=== PATIENT | male | born 1955 | race African-American/Black ===

== ENCOUNTER 2016-10-22 10:07 | Emergency (ER) | payer MEDICAID ==
[~2016-10-22] VITALS: Ht 177.8 cm; Wt 88.5 kg
[~2016-10-22 10:07] MED LIST: ACCUPRIL10 MG PO; ACYCLOVIR800 MG ORAL; ALBUTEROL SULF8.5 GM INH; AMLODIPINE BESY10 MG ORAL; ASMANEX; AZITHROMYCIN250 MG ORAL; BENADRYL50 MG ORAL; CALCITRIOL0.25 MCG PO; COLACE100 MG ORAL; COUMADIN5 MG ORAL; COZAAR50 MG ORAL; DULERA 100 MCG/13 GM INH; FORADIL INH; FORADIL12 MCG IH; GABAPENTIN100 MG ORAL; HYDROCHLOROTH12.5 M1 PO; HYDROCHLOROTH12.5 M2 ORAL; HYDROCHLOROTHIA50 MG ORAL; HYDROCORTISO1 APPLIC TOPIC; IBUPROFEN600 MG ORAL; INDOMETHACIN50 MG PO; INDOMETHACIN75 MG ORAL; LISINOPRIL2.5 MG ORAL; LISINOPRIL20 MG ORAL; METOPROLOL TART25 MG ORAL; MITIGARE0.6 MG PO; NORCO 5-325 TA1 EACH ORAL; OCUFLOX5 ML OP; PREDNISONE20 MG ORAL; ROBAXIN-750750 MG PO; SINGULAIR10 MG ORAL; VICODIN1 TAB PO; VIROPTIC LEFT EYE; ZANTAC150 MG ORAL; [UNRECOGNIZED DRUG - OTHER]; [UNRECOGNIZED DRUG - OTHER]
[2016-10-22] MEDS ORDERED: PREDNISONE20 MG ORAL (10:27)
[2016-10-22] MEDS ORDERED: PredniSONE 20mg tab ORAL ONE (10:30)
[2016-10-22] MEDS: Albuterol ud Inhalation HHN SCH ×3 (10:40→10:57)
[2016-10-22] MEDS: Ipratropium 0.02% Inh Soln 2.5ml UD HHN SCH ×3 (10:41→10:56)
[2016-10-22 11:17] VITALS: BP 159/84
[2016-10-22 11:31] VITALS: BP 159/84
--- NOTE | 2016-10-22 15:53 | Diagnostic Imaging Report ---
Indication: SOB Technique: One view of the chest Comparison: 06/27/2016 Findings: Lungs and pleural spaces are clear. Heart size is normal. No significant change Impression: No acute process
--- NOTE | 2016-10-24 14:35 | Emergency Room Report ---
History of Present Illness General Chief Complaint: Dyspnea/Respdistress Source: Patient Present Illness HPI [id number] with 5 days green-sputum productive cough. Associated with chest tightness. Denies fever/chills, SOB, sick contacts. History of asthma. Non- smoker. Minimal improvement with home nebs. Allergies: Coded Allergies: SHELLFISH (Verified Allergy, Unknown, 04/17/15) Patient History Past Medical History: asthma Past Surgical History: none Pertinent Family History: none Social History: Denies: alcohol use, drug use, smoking Immunizations: UTD Reviewed Nursing Documentation: PMH: Agreed, PSxH: Agreed Nursing Documentation-PMH Past Medical History: No History, Except For Hx Hypertension: Yes Hx Pacemaker: No Hx Asthma: Yes Hx COPD: No Hx Diabetes: No Hx Cancer: No Hx Gastrointestinal Problems: No Hx Dialysis: No Hx Cerebrovascular Accident: No Hx Seizures: No Review of Systems All Other Systems: negative except mentioned in HPI Physical Exam Vital Signs Date Time Temp Pulse Resp B/P Pulse Ox O2 Delivery O2 Flow Rate FiO2 10/22/16 10:19 97.7 83 20 176/94 100 Room Air 10/22/16 10:34 21 Sp02 EP Interpretation: reviewed, normal General Appearance: normal inspection, well appearing, no apparent distress, alert, GCS 15, non-toxic Head: normocephalic, atraumatic Eyes: bilateral eye EOMI, bilateral eye PERRL ENT: normal ENT inspection, hearing grossly normal, normal voice Neck: normal inspection, full range of motion, supple, no bony tend Respiratory: normal inspection, chest non-tender, lungs clear, normal breath sounds, no rhonchi, no respiratory distress, no retraction, no accessory muscle use, speaking full sentences, wheezing Cardiovascular #1: regular rate, rhythm, no edema Gastrointestinal: normal inspection, normal bowel sounds, non tender, soft, no guarding, no hernia Genitourinary: no CVA tenderness Musculoskeletal: normal inspection, back normal, normal range of motion, Mike' s Sign negative Neurologic: normal inspection, alert, oriented x3, responsive, sofa cover inspector III-XII nml as tested, motor strength/tone normal, speech normal Psychiatric: normal inspection, judgement/insight normal, mood/affect normal Skin: normal inspection, normal color, no rash Lymphatic: normal inspection Medical Decision Making Diagnostic Impression: Primary Impression: Asthma attack ER Course Mild asthma exacerbation. VS stable - no hypoxia, tachypnea. Mild end exp wheezing on exam Improved with nebs, steroids CXR does not show PNA Patient has enough nebs at home Rx prednisone PMD followup as needed Chest X-Ray Diagnostic Results EP Interpretation: Yes Findings: no consolidation Number of Views: 1 Last Vital Signs Date Time Temp Pulse Resp B/P Pulse Ox O2 Delivery O2 Flow Rate FiO2 10/22/16 11:31 97.7 87 10 159/84 100 Room Air 21 Status: improved Disposition: HOME, SELF-CARE Condition: Stable Scripts Prednisone* (PREDNISONE*) 20 Mg Tablet 40 MG ORAL DAILY for 4 Days, #4 TAB Prov: ELIZABETH JOHNSON M.D. 10/22/16 Referrals: NON PHYSICIAN (PCP) Patient Instructions: Asthma, Adult, [id number] Additional Instructions: - Take prednisone once daily each morning for next 4 days - Continue Dulera as prescribed every day - Use proventil as needed for cough - Return to ER if continued shortness of breath, chest tightness or other concerns ELIZABETH JOHNSON M.D. Oct 24, 2016 14:35
== END 2016-10-22 11:32 | disposition home or self-care (01) ==
LOC: EMR 11:05
DX: J45.901 Unspecified asthma with (acute) exacerbation (principal); I10 Essential (primary) hypertension; Z91.013 Allergy to seafood
CPT/HCPCS: 71010; 94640; 94664; 99283

== ENCOUNTER 2017-01-11 22:11 | Emergency (ER) | payer MEDICAID ==
[~2017-01-11] VITALS: Ht 177.8 cm; Wt 89.8 kg
[2017-01-11] MEDS ORDERED: Morphine Sulfate 4mg/ml Inj IVP ONE (23:00)
[2017-01-12 00:39] LABS: BASOPHILS % (AUTO) 0.8 % (0.0-2.0); EOSINOPHILS % (AUTO) 0.6 % (0.0-3.0); LYMPHOCYTES % (AUTO) 28.7 % (20.0-45.0); MEAN CORPUSCULAR HEMOGLOBIN 32.1 PG (27.0-31.0); MEAN CORPUSCULAR HGB CONC 33.3 G/DL (32.0-36.0); MEAN CORPUSCULAR VOLUME 96 FL (80-99); MEAN PLATELET VOLUME 10.6 FL (6.5-10.1); MONOCYTES % (AUTO) 7.4 % (1.0-10.0); NEUTROPHILS % (AUTO) 62.5 % (45.0-75.0); PLATELET COUNT 173 K/UL (150-450); RED BLOOD COUNT 4.46 M/UL (4.70-6.10); RED CELL DISTRIBUTION WIDTH 11.7 % (11.6-14.8); WHITE BLOOD COUNT 6.8 K/UL (4.8-10.8)
[2017-01-12 00:56] LABS: ALANINE AMINOTRANSFERASE 22 U/L (3-41); ALBUMIN/GLOBULIN RATIO 1.6 (1.0-2.7); ANION GAP 14 (5-15); ASPARTATE AMINO TRANSFERASE 21 U/L (5-40); CALCIUM 9.8 mg/dL (8.6-10.2); CARBON DIOXIDE 29 mEQ/L (20-30); CHLORIDE 96 mEQ/L (98-107); CREATININE 0.9 mg/dL (0.7-1.2); GLOMERULAR FILTRATION RATE > 60 mL/min (>60); HEMOLYSIS 8; POTASSIUM 3.7 mEQ/L (3.4-4.9); SODIUM 139 mEQ/L (135-145); TOTAL PROTEIN 7.6 g/dL (6.6-8.7)
[2017-01-12 00:58] LABS: TROPONIN I < 0.30 ng/mL (<=0.30)
[2017-01-12 01:00] VITALS: BP 179/96
[2017-01-12 01:07] LABS: CKMB 5.6 ng/mL (< 6.7)
[2017-01-12] MEDS ORDERED: CYCLOBENZAPRINE10 MG ORAL (01:53)
[2017-01-12] MEDS ORDERED: IBUPROFEN600 MG ORAL (01:53)
[2017-01-12] MEDS ORDERED: Ketorolac 30mg Inj IV ONE (02:00)
[2017-01-12 02:20] VITALS: BP 177/95
[2017-01-12 02:26] VITALS: BP 177/95
--- NOTE | 2017-01-12 04:01 | Emergency Room Report ---
History of Present Illness General Chief Complaint: General Complaint Source: Patient Present Illness HPI 61-year-old male presents ED complaining of pain in his neck and arms. Started tonight. Feels cramping sensation in his arms bilaterally and in his neck. radiating to his fingertips. 8/10. Denies any weakness in his arms or legs. Denies any chest pain or shortness of breath. Denies drug use. States he has had muscle cramps similar in the past but never this intense. No other aggravating relieving factors. Denies any other associated symptoms Allergies: Coded Allergies: SHELLFISH (Verified Allergy, Unknown, 04/17/15) Patient History Past Medical History: HTN, asthma Past Surgical History: none Pertinent Family History: none Social History: Denies: alcohol use, drug use, smoking Immunizations: UTD Reviewed Nursing Documentation: PMH: Agreed, PSxH: Agreed Nursing Documentation-PMH Hx Hypertension: Yes Hx Pacemaker: No Hx Asthma: Yes Hx COPD: No Hx Diabetes: No Hx Cancer: No Hx Gastrointestinal Problems: No Hx Dialysis: No Hx Cerebrovascular Accident: No Hx Seizures: No Review of Systems All Other Systems: negative except mentioned in HPI Physical Exam Vital Signs Date Time Temp Pulse Resp B/P Pulse Ox O2 Delivery O2 Flow Rate FiO2 01/11/17 22:34 98.1 84 16 188/117 99 Room Air Sp02 EP Interpretation: reviewed, normal General Appearance: no apparent distress, alert, GCS 15, non-toxic Head: normocephalic, atraumatic Eyes: bilateral eye PERRL, bilateral eye normal inspection ENT: hearing grossly normal, normal pharynx, no angioedema, normal voice Neck: full range of motion, supple/symm/no masses, tender lateral Respiratory: chest non-tender, lungs clear, normal breath sounds, speaking full sentences Cardiovascular #1: regular rate, rhythm, no edema Cardiovascular #2: 2+ carotid (R), 2+ carotid (L), 2+ radial (R), 2+ radial (L) , 2+ dorsalis pedis (R), 2+ dorsalis pedis (L) Gastrointestinal: normal bowel sounds, non tender, soft, non-distended, no guarding, no rebound Rectal: deferred Genitourinary: normal inspection, no CVA tenderness Musculoskeletal: back normal, gait/station normal, normal range of motion, non- tender Neurologic: alert, oriented x3, responsive, motor strength/tone normal, sensory intact, speech normal Psychiatric: judgement/insight normal, memory normal, mood/affect normal, no suicidal/homicidal ideation Reflexes: 3+ bicep (R), 3+ bicep (L), 3+ tricep (R), 3+ tricep (L), 3+ knee (R) , 3+ knee (L) Skin: normal color, no rash, warm/dry, well hydrated Lymphatic: no adenopathy Medical Decision Making Diagnostic Impression: Primary Impression: Muscle spasm ER Course Hospital Course 61-year-old male presents ED with bilateral arm tingling and cramping sensation Differential diagnoses include: atypical chest pain, muscle cramps, rhabdo, radiculopathy Clinical course Patient placed on stretcher. After initial history and physical I ordered labs , EKG, chest x-ray. CT Head, CT Spine, pain meds labs reviewed- all electrolytes normal, troponins negative, no leukocytosis, hemoglobin/hematocrit stable. CK in 300s CT head, CT Cspine unremarkable Chest x-ray-no cardiomegaly, no rib fracture, no pneumothorax, no acute process EKG - NSR, no acute ischemic changes interpreted by me On reassessment pain is improved. Likely muscle cramps given patient's age and cardiac history I believe workup was warranted I. I feel this is a highly complex case requiring extensive working including EKG/Rhythm strip, Xray/CT/US, Blood/urine lab work, repeat exams while in ED, and administration of strong opiates/narcotics for pain control, admission to hospital or close patient follow up. Diagnosis - muscle spasm Stable and discharged to home with prescription for Motrin, Flexeril. Instructed to followup with PMD. Return to ED if symptoms recur or worsen Labs Test 01/12/17 00:05 White Blood Count 6.8 K/UL (4.8-10.8) Red Blood Count 4.46 M/UL (4.70-6.10) Hemoglobin 14.3 G/DL (14.2-18.0) Hematocrit 42.9 % (42.0-52.0) Mean Corpuscular Volume 96 FL (80-99) Mean Corpuscular Hemoglobin 32.1 PG (27.0-31.0) Mean Corpuscular Hemoglobin Concent 33.3 G/DL (32.0-36.0) Red Cell Distribution Width 11.7 % (11.6-14.8) Platelet Count 173 K/UL (150-450) Mean Platelet Volume 10.6 FL (6.5-10.1) Neutrophils (%) (Auto) 62.5 % (45.0-75.0) Lymphocytes (%) (Auto) 28.7 % (20.0-45.0) Monocytes (%) (Auto) 7.4 % (1.0-10.0) Eosinophils (%) (Auto) 0.6 % (0.0-3.0) Basophils (%) (Auto) 0.8 % (0.0-2.0) Sodium Level 139 mEQ/L (135-145) Potassium Level 3.7 mEQ/L (3.4-4.9) Chloride Level 96 mEQ/L (98-107) Carbon Dioxide Level 29 mEQ/L (20-30) Anion Gap 14 (5-15) Blood Urea Nitrogen 17 mg/dL (7-23) Creatinine 0.9 mg/dL (0.7-1.2) Estimat Glomerular Filtration Rate > 60 mL/min (>60) Glucose Level 132 mg/dL (74-106) Calcium Level 9.8 mg/dL (8.6-10.2) Total Bilirubin 0.4 mg/dL (0.0-1.2) Aspartate Amino Transf (AST/SGOT) 21 U/L (5-40) Alanine Aminotransferase (ALT/SGPT) 22 U/L (3-41) Alkaline Phosphatase 71 U/L (40-129) Total Creatine Kinase 391 U/L (38-174) Creatine Kinase MB 5.6 ng/mL (< 6.7) Creatine Kinase MB Relative Index 1.4 Troponin I < 0.30 ng/mL (<=0.30) Total Protein 7.6 g/dL (6.6-8.7) Albumin 4.7 g/dL (3.5-5.2) Globulin 2.9 g/dL Albumin/Globulin Ratio 1.6 (1.0-2.7) EKG Diagnostic Results Rate: normal Rhythm: NSR ST Segments: no acute changes ASA given to the pt in ED: No Rhythm Strip Diag. Results EP Interpretation: yes Rhythm: NSR, no PVC's, no ectopy Chest X-Ray Diagnostic Results Chest X-Ray Ordered: Yes # of Views/Limited/Complete: 1 View EP Interpretation: Yes Interpretation: no consolidation, no effusion, no pneumothorax, no acute cardiopulmonary disease Indication: Other - tingling/weakness in both arms Impression: No acute disease Interpreting ER Provider: Jefferson Greer MD CT/MRI/US Diagnostic Results CT/MRI/US Diagnostic Results : Imaging Test Ordered: CT Head, CT Cspine Impression CT head - no acute process CT Cspine - no acute process Last Vital Signs Date Time Temp Pulse Resp B/P Pulse Ox O2 Delivery O2 Flow Rate FiO2 01/12/17 02:26 96 18 177/95 100 Room Air 01/12/17 02:20 97.8 Status: improved Disposition: HOME, SELF-CARE Condition: Stable Scripts Cyclobenzaprine Hcl* (FLEXERIL*) 10 Mg Tablet 10 MG ORAL TID Y for Muscle Spasm, #20 TAB Prov: JEFFERSON GREER M.D. 01/12/17 Ibuprofen* (MOTRIN*) 600 Mg Tablet 600 MG ORAL Q8H Y for For Pain, #30 TAB 0 Refills Prov: JEFFERSON GREER M.D. 01/12/17 Patient Instructions: Muscle Cramps and Spasms, [id number] JEFFERSON GREER M.D. Jan 12, 2017 04:01
--- NOTE | 2017-01-12 06:49 | Diagnostic Imaging Report ---
Indications: Neck pain Technique: Continuous helical CT imaging of the cervical spine performed with automatic exposure was on a Siemens sensation [address] scanner. Axial, coronal and sagittal images reconstructed at 3 mm slice thicknesses. CTDI volume(s): 25 mGy Total DLP: 500 mGy-cm Findings: Comparison: None. Lordotic curvature is partially straightened.Vertebral alignment is intact. No fracture, facet subluxation or dislocation, prevertebral soft tissue swelling, or other acute changes are demonstrated. Multilevel disc space narrowing with marginal osteophyte formation. Multilevel facet hypertrophy. Multilevel spinal stenosis and neural foraminal narrowing results.. IMPRESSION: Straightening of cervical lordosis. This may be secondary to degenerative changes, positioning and/or muscular spasm. No other evidence of acute cervical abnormality Degenerative spondylosis. Neural impingement not excludable. Consider MRI for further evaluation as clinically indicated. This correlates with [employer] preliminary report The CT scanner at [facility] is accredited by the [employer] and the scans are performed using protocols designed to limit radiation exposure to as low as reasonably achievable to attain images of sufficient resolution adequate for diagnostic evaluation.
--- NOTE | 2017-01-12 06:50 | Diagnostic Imaging Report ---
Indications: Cephalgia Technique: Continuous helical CT imaging of the brain was performed with automatic exposure control on a Siemens sensation [address] scanner. Axial and coronal images were reconstructed at 5 mm slice thickness and interval. CTDI volume(s): 70 mGy Total DLP: 1442 mGy-cm Findings: Comparison: None. Intracranial anatomy is unremarkable. No evidence of mass or hemorrhage, other attenuation abnormality, mass effect, midline shift, hydrocephalus or increased intracranial pressure. Bone window images are unremarkable. Visualized paranasal sinuses and mastoid air cells are clear. IMPRESSION: Negative noncontrast CT scan of the brain . This correlates with [employer] preliminary report. The CT scanner at [facility] is accredited by the [employer] and the scans are performed using protocols designed to limit radiation exposure to as low as reasonably achievable to attain images of sufficient resolution adequate for diagnostic evaluation.
--- NOTE | 2017-01-14 08:52 | Diagnostic Imaging Report ---
Indication: Chest pain Technique: Single portable AP view of the chest. Findings: Comparison: 10/22/2016 The bones and extra pulmonary soft tissues, cardiomediastinal silhouette, pulmonary vasculature and parenchyma, and pleural surfaces remain unremarkable. IMPRESSION: Negative portable AP chest, unchanged.
--- NOTE | 2017-01-14 20:13 | Cardiology Report ---
APPROVED REPORT EKG Measurement Heart [id number] Normal sinus rhythm Abnormal ECG
== END 2017-01-12 02:20 | disposition home or self-care (01) ==
LOC: EMR 22:48
DX: M62.838 Other muscle spasm (principal); R20.2 Paresthesia of skin; I10 Essential (primary) hypertension; J45.909 Unspecified asthma, uncomplicated; Z91.013 Allergy to seafood
CPT/HCPCS: 36415; 70450; 71010; 72125; 80053; 82550; 82553; 84484; 85025; 93005; 96374; 96375; 99284; J1885; J2270; J7040

== ENCOUNTER 2017-04-22 07:08 | Emergency (ER) | payer MEDICAID ==
[~2017-04-22] VITALS: Ht 177.8 cm; Wt 90.7 kg
[~2017-04-22 07:08] MED LIST changes: +CYCLOBENZAPRINE10 MG ORAL
[2017-04-22 07:22] VITALS: BP 162/99
--- NOTE | 2017-04-22 07:25 | Emergency Room Report ---
History of Present Illness General Chief Complaint: Earache Source: Patient, Medical Record Present Illness HPI Patient presents with complaints of sore throat and ear pressure on the right- hand side. This is been going on for 2 weeks. Some worsening. In addition to that he has some mucoid discharge from his nose which is yellow. There's been no fevers and no wheezing. In addition to that no cough. Denies nausea vomiting or diarrhea. The pain is 10/10 according to him and pressure. It's intermittent worse when he is laying down. He's had intermittent headaches before and also has had problems with his sinuses in the past. The patient is a history of asthma and hypertension. He denies diabetes and states that his blood sugars have been normal. Denies dysuria or rashes. 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 Nursing Documentation: PMH: Agreed, PSxH: Agreed Nursing Documentation-PMH Past Medical History: No History, Except For Hx Hypertension: Yes Hx Pacemaker: No Hx Asthma: Yes Hx COPD: No Hx Diabetes: No Hx Cancer: No Hx Gastrointestinal Problems: No Hx Dialysis: No Hx Cerebrovascular Accident: No Hx Seizures: No Review of Systems All Other Systems: negative except mentioned in HPI Physical Exam Vital Signs Date Time Temp Pulse Resp B/P (MAP) Pulse Ox O2 Delivery O2 Flow Rate FiO2 04/22/17 07:12 98.1 76 14 172/78 98 Room Air Sp02 EP Interpretation: reviewed, normal General Appearance: well appearing, no apparent distress - not appear affected by reported pain Head: normocephalic, atraumatic Eyes: bilateral eye normal inspection, bilateral eye PERRL, bilateral eye other - arcus ENT: hearing grossly normal, normal voice, TMs + canals normal, pharyngeal erythema - R side Neck: full range of motion, supple Respiratory: lungs clear, normal breath sounds, no respiratory distress, speaking full sentences Cardiovascular #1: regular rate, rhythm Gastrointestinal: normal inspection, non tender, soft Musculoskeletal: no calf tenderness Neurologic: alert, copy center specialist III-XII nml as tested, motor strength/tone normal, sensory intact, cerebellar normal, normal gait, speech normal Psychiatric: mood/affect normal Skin: no rash Medical Decision Making Diagnostic Impression: Primary Impression: Viral syndrome Additional Impression: Sinusitis Qualified Codes: J01.01 - Acute recurrent maxillary sinusitis ER Course Patient presents with 2 weeks of upper respiratory type of symptoms. He denies any cough. He does have some mucoid discharge from his nose. Differential includes sinusitis, pharyngitis, otitis media. Based on his exam a strep infection is much less likely. At this point we will focus on symptomatic treatment. No antibiotics indicated. Patient sleeping here after meds. Patient stable for outpatient observation and treatment. Last Vital Signs Date Time Temp Pulse Resp B/P (MAP) Pulse Ox O2 Delivery O2 Flow Rate FiO2 04/22/17 08:43 98.1 66 19 144/83 100 Room Air Status: improved Disposition: HOME, SELF-CARE Condition: Improved Scripts Hydrocodone Bit/Acetaminophen 5-325* (NORCO 5-325*) 1 Each Tablet 1 TAB ORAL Q6H Y for For Pain, #10 TAB 0 Refills Prov: Herman Barros M.D. 04/22/17 Ibuprofen* (MOTRIN*) 600 Mg Tablet 600 MG ORAL Q6H Y for For Pain, #16 TAB Prov: Herman Barros M.D. 04/22/17 Chlorpheniramine Maleate (CHLORPHENIRAMINE MALEATE) 4 Mg Tablet 4 MG ORAL Q6HR Y for congestion, #12 TAB 0 Refills Prov: Herman Barros M.D. 04/22/17 Herman Barros M.D. Apr 22, 2017 07:25
[2017-04-22] MEDS ORDERED: NORCO 5-325 TA1 EACH ORAL (07:29)
[2017-04-22] MEDS ORDERED: CHLORPHENIRAMINE4 MG ORAL (07:29)
[2017-04-22] MEDS ORDERED: IBUPROFEN600 MG ORAL (07:29)
[2017-04-22 08:43] VITALS: BP 144/83
== END 2017-04-22 08:43 | disposition home or self-care (01) ==
LOC: EMR 07:36
DX: B34.9 Viral infection, unspecified (principal); J32.9 Chronic sinusitis, unspecified; I10 Essential (primary) hypertension; J45.909 Unspecified asthma, uncomplicated
CPT/HCPCS: 99284

== ENCOUNTER 2019-01-08 03:23 | Emergency (ER) | payer MEDICAID, MEDICARE, OTHER ==
[~2019-01-08] VITALS: Ht 177.8 cm; Wt 88.5 kg
[~2019-01-08 03:23] MED LIST changes: +ACCUPRIL20 MG PO; +ASMANEX0.135 G1 IH; +CHLORPHENIRAMINE4 MG ORAL; +PREDNISONE50 MG PO
--- NOTE | 2019-01-08 03:38 | NUR ---
ED Nurse Note: Patient presents with complaints of fever, post pneumonia vaccination. Patient has no other complaints.
[2019-01-08 03:44] VITALS: BP 156/78
--- NOTE | 2019-01-08 03:45 | NUR ---
ED Nurse Note: Patient has complaints of headache 10/10 on pain scale.
[2019-01-08] MEDS ORDERED: Acetaminophen 500mg (ES) tab ORAL ONE (04:00)
[2019-01-08] MEDS ORDERED: Ipratropium 0.02% Inh Soln 2.5ml UD HHN ONE (04:00)
[2019-01-08] MEDS ORDERED: Albuterol ud Inhalation HHN ONE (04:00)
[2019-01-08 04:18] VITALS: BP 155/88
[2019-01-08 04:29] LABS: HEMATOCRIT 42.9 % (42.0-52.0); HEMOGLOBIN 14.2 G/DL (14.2-18.0); MEAN CORPUSCULAR VOLUME 93 FL (80-99); PLATELET COUNT 197 K/UL (150-450); RED CELL DISTRIBUTION WIDTH 11.7 % (11.6-14.8); WHITE BLOOD COUNT 9.7 K/UL (4.8-10.8)
--- NOTE | 2019-01-08 04:34 | NUR ---
ED Nurse Note:Radiology at bedside.
[2019-01-08 04:42] LABS: ANION GAP 10 mmol/L (5-15); BLOOD UREA NITROGEN 24 mg/dL (7-18); CALCIUM 9.3 MG/DL (8.5-10.1); CARBON DIOXIDE 31 MMOL/L (21-32); CHLORIDE 100 MMOL/L (98-107); CREATININE 1.1 MG/DL (0.55-1.30); POTASSIUM 3.3 MMOL/L (3.5-5.1); SODIUM 140 MMOL/L (136-145)
[2019-01-08 04:46] LABS: ALANINE AMINOTRANSFERASE 35 U/L (12-78); ALBUMIN 4.4 G/DL (3.4-5.0); ALBUMIN/GLOBULIN RATIO 1.3 (1.0-2.7); ALKALINE PHOSPHATASE 72 U/L (46-116); ASPARTATE AMINO TRANSFERASE 23 U/L (15-37); BILIRUBIN,TOTAL 0.6 MG/DL (0.2-1.0)
[2019-01-08] MEDS ORDERED: LEVAQUIN750 MG ORAL (04:59)
[2019-01-08] MEDS ORDERED: TYLENOL EXTRA500 MG ORAL (04:59)
--- NOTE | 2019-01-08 05:00 | NUR ---
ED Nurse Note: Patient cleared for discharge, patient vital signs are stable. patient already met with ERMD prior to discharge. Patient verbalized understanding of discharge instructions. ID band removed. IV removed. Patient ambulatory with steady gait, A&Ox4. Patient departed with all personal belongings.
[2019-01-08 05:07] VITALS: BP 155/88
--- NOTE | 2019-01-08 15:22 | Diagnostic Imaging Report ---
Indication: Cough for 4 days Technique: One view of the chest Comparison: 01/11/2017 Findings: The heart is mildly enlarged. Lungs and pleural spaces are clear. No significant interim change Impression: No acute process
--- NOTE | 2019-01-10 06:57 | Emergency Room Report ---
History of Present Illness General Chief Complaint: Fever Source: Patient Present Illness HPI 63-year-old male presents ED for evaluation. Complaining of fever, headache. Started last night. Febrile in triage. Pain is frontal, throbbing, 7 out of 10 , nonradiating. Denies neck stiffness. Denies earache or sore throat. denies photophobia or blurry vision. states that he received the pneumonia vaccine yesterday at his clinic. states hes been coughing for several weeks now. Productive with yellowish phlegm. Denies sick contacts or recent travel. No other aggravating relieving factors. Denies any other associated symptoms Allergies: Coded Allergies: SHELLFISH (Verified Allergy, Unknown, 04/17/15) Patient History Past Medical History: HTN, asthma Past Surgical History: none Pertinent Family History: none Social History: Denies: smoking, alcohol use, drug use Immunizations: UTD Reviewed Nursing Documentation: PMH: Agreed; PSxH: Agreed Nursing Documentation-PMH Past Medical History: No History, Except For Hx Hypertension: Yes Hx Pacemaker: No Hx Asthma: Yes Hx COPD: No Hx Diabetes: No Hx Cancer: No Hx Gastrointestinal Problems: No Hx Dialysis: No Hx Cerebrovascular Accident: No Hx Seizures: No Review of Systems All Other Systems: negative except mentioned in HPI Physical Exam Vital Signs Date Time Temp Pulse Resp B/P (MAP) Pulse Ox O2 Delivery O2 Flow Rate FiO2 01/08/19 03:28 101.8 113 22 156/78 (104) 96 Room Air 01/08/19 04:02 21 Sp02 EP Interpretation: reviewed, normal General Appearance: no apparent distress, alert, GCS 15, non-toxic Head: normocephalic, atraumatic Eyes: bilateral eye normal inspection, bilateral eye PERRL ENT: hearing grossly normal, normal pharynx, no angioedema, normal voice Neck: full range of motion, supple, no meningismus, supple/symm/no masses Respiratory: chest non-tender, lungs clear, normal breath sounds, speaking full sentences Cardiovascular #1: regular rate, rhythm, no edema Cardiovascular #2: 2+ carotid (R), 2+ carotid (L), 2+ radial (R), 2+ radial (L) , 2+ dorsalis pedis (R), 2+ dorsalis pedis (L) Gastrointestinal: normal bowel sounds, non tender, soft, non-distended, no guarding, no rebound Rectal: deferred Genitourinary: normal inspection, no CVA tenderness Musculoskeletal: back normal, gait/station normal, normal range of motion, non- tender Neurologic: alert, oriented x3, responsive, motor strength/tone normal, sensory intact, speech normal Psychiatric: judgement/insight normal, memory normal, mood/affect normal, no suicidal/homicidal ideation Reflexes: 3+ bicep (R), 3+ bicep (L), 3+ tricep (R), 3+ tricep (L), 3+ knee (R) , 3+ knee (L) Skin: normal color, no rash, warm/dry, well hydrated Lymphatic: no adenopathy Medical Decision Making Diagnostic Impression: Primary Impression: Atypical pneumonia ER Course Hospital Course 63-year-old male presents to ED complaining of cough, fever, headache Differential diagnoses include: URI, bronchitis, asthma/COPD, pneumonia Clinical course Patient placed on stretcher. After initial history, physical exam reveals an elderly male in no acute distress. Bilateral TM unremarkable. No pharyngeal erythema. No tonsillar exudates. No lymphadenopathy. lungs clear. I ordered labs, IV fluids, tylenol, nebs, chest x-ray. Labs reviewed-no leukocytosis noted, hemoglobin/hematocrit stable, electrolytes okay Chest x-ray shows no focal consolidation On reassessment patient states he feels better. Per curb-65 criteria, patient does not require admission. consideration for reaction to pneumonia vaccine versus atypical pneumonia. Given age we will prescribe antibiotics. Safe for discharge with close outpatient follow-up. Diagnosis - atypical pneumonia Stable and discharged home with prescriptions for Tylenol, Levaquin. Instructed to followup with PMD. Return to ED if symptoms recur or worsen Labs Test 01/08/19 04:04 White Blood Count 9.7 K/UL (4.8-10.8) Red Blood Count 4.60 M/UL (4.70-6.10) Hemoglobin 14.2 G/DL (14.2-18.0) Hematocrit 42.9 % (42.0-52.0) Mean Corpuscular Volume 93 FL (80-99) Mean Corpuscular Hemoglobin 30.8 PG (27.0-31.0) Mean Corpuscular Hemoglobin Concent 33.0 G/DL (32.0-36.0) Red Cell Distribution Width 11.7 % (11.6-14.8) Platelet Count 197 K/UL (150-450) Mean Platelet Volume 8.9 FL (6.5-10.1) Neutrophils (%) (Auto) % (45.0-75.0) Lymphocytes (%) (Auto) % (20.0-45.0) Monocytes (%) (Auto) % (1.0-10.0) Eosinophils (%) (Auto) % (0.0-3.0) Basophils (%) (Auto) % (0.0-2.0) Sodium Level 140 MMOL/L (136-145) Potassium Level 3.3 MMOL/L (3.5-5.1) Chloride Level 100 MMOL/L (98-107) Carbon Dioxide Level 31 MMOL/L (21-32) Anion Gap 10 mmol/L (5-15) Blood Urea Nitrogen 24 mg/dL (7-18) Creatinine 1.1 MG/DL (0.55-1.30) Estimat Glomerular Filtration Rate > 60 mL/min (>60) Glucose Level 146 MG/DL (74-106) Calcium Level 9.3 MG/DL (8.5-10.1) Total Bilirubin 0.6 MG/DL (0.2-1.0) Aspartate Amino Transf (AST/SGOT) 23 U/L (15-37) Alanine Aminotransferase (ALT/SGPT) 35 U/L (12-78) Alkaline Phosphatase 72 U/L (46-116) Total Protein 7.7 G/DL (6.4-8.2) Albumin 4.4 G/DL (3.4-5.0) Globulin 3.3 g/dL Albumin/Globulin Ratio 1.3 (1.0-2.7) Chest X-Ray Diagnostic Results Chest X-Ray Diagnostic Results : Chest X-Ray Ordered: Yes # of Views/Limited/Complete: 1 View Indication: Other - cough EP Interpretation: Yes Interpretation: no consolidation, no effusion, no pneumothorax, no acute cardiopulmonary disease Impression: No acute disease Electronically Signed by: Electronically signed by Jefferson Greer MD Last Vital Signs Date Time Temp Pulse Resp B/P (MAP) Pulse Ox O2 Delivery O2 Flow Rate FiO2 01/08/19 05:07 99.4 99 18 155/88 100 Room Air 21 Status: improved Disposition: HOME, SELF-CARE Condition: Stable Scripts Acetaminophen* (TYLENOL EXTRA STRENGTH*) 500 Mg Tablet 500 MG ORAL Q8H PRN for Prn Headache/Temp > 101, #30 TAB 0 Refills Prov: Jefferson Greer MD 01/08/19 Levofloxacin* (LEVAQUIN*) 750 Mg Tablet 750 MG ORAL DAILY, #7 TAB Prov: Jefferson Greer MD 01/08/19 Referrals: Rinku Martines [facility] Patient Instructions: Community-Acquired Pneumonia, Adult, [id number] Jefferson Greer MD Jan 10, 2019 06:57
== END 2019-01-08 05:11 | disposition home or self-care (01) ==
LOC: EMR 04:02
DX: J18.9 Pneumonia, unspecified organism (principal); I10 Essential (primary) hypertension; Z91.013 Allergy to seafood
CPT/HCPCS: 36415; 71045; 80053; 85025; 96360; 99284

== ENCOUNTER 2019-06-05 12:40 | Emergency (ER) | payer MEDICARE, OTHER ==
[~2019-06-05] VITALS: Ht 177.8 cm; Wt 86.2 kg
[~2019-06-05 12:40] MED LIST changes: +LEVAQUIN750 MG ORAL; +TYLENOL EXTRA500 MG ORAL
[2019-06-05] MEDS ORDERED: Ipratropium 0.02% Inh Soln 2.5ml UD HHN ONE (13:00)
[2019-06-05] MEDS ORDERED: Albuterol ud Inhalation HHN ONE ×2 (13:00→13:15)
[2019-06-05 13:19] VITALS: BP 136/86
--- NOTE | 2019-06-05 13:28 | Emergency Room Report ---
History of Present Illness General Chief Complaint: Dyspnea/Respdistress Source: Patient Present Illness HPI This patient has a history of asthma. He has multiple inhalers and states that he regularly has to take prednisone. Dates that over the past day he has seen shortness of breath. He is also been wheezing. He has used his inhalers without relief. He denies recent illness. Denies cough or congestion. Denies fever or chills. He denies nausea or vomiting. He has no other complaints. Allergies: Coded Allergies: SHELLFISH (Verified Allergy, Unknown, 04/17/15) Patient History Past Medical History: see triage record, HTN, asthma Social History: Denies: smoking, alcohol use, drug use Reviewed Nursing Documentation: PMH: Agreed; PSxH: Agreed Nursing Documentation-PMH Past Medical History: No History, Except For Hx Hypertension: Yes Hx Pacemaker: No Hx Asthma: Yes Hx COPD: No Hx Diabetes: No Hx Cancer: No Hx Gastrointestinal Problems: No Hx Dialysis: No Hx Cerebrovascular Accident: No Hx Seizures: No Review of Systems All Other Systems: negative except mentioned in HPI Physical Exam Vital Signs Date Time Temp Pulse Resp B/P (MAP) Pulse Ox O2 Delivery O2 Flow Rate FiO2 06/05/19 12:44 98.6 83 18 159/92 (114) 100 Room Air Sp02 EP Interpretation: reviewed, normal General Appearance: no apparent distress, alert, GCS 15, non-toxic Head: normocephalic, atraumatic Eyes: bilateral eye normal inspection, bilateral eye PERRL ENT: hearing grossly normal, normal pharynx, no angioedema, normal voice Neck: full range of motion, supple/symm/no masses Respiratory: chest non-tender, accessory muscle use, speaking full sentences, wheezing, expiration Cardiovascular #1: regular rate, rhythm, no edema Gastrointestinal: normal bowel sounds, non tender, soft, non-distended, no guarding, no rebound Rectal: deferred Musculoskeletal: back normal, gait/station normal, normal range of motion, non- tender Neurologic: alert, oriented x3, responsive, motor strength/tone normal, sensory intact, speech normal Psychiatric: judgement/insight normal, memory normal, mood/affect normal, no suicidal/homicidal ideation Skin: no rash, normal color Medical Decision Making Diagnostic Impression: Primary Impression: Asthma exacerbation ER Course This patient has a clinical presentation consistent with asthma exacerbation. Patient has a history of asthma and has wheezing on physical exam. The patient was given albuterol and Atrovent nebulizer treatments. The patient was also given prednisone orally. The patient had significant improvement in subjective shortness of breath. The patient's lung exam improved significantly. I will also treat the patient with a course of antibiotics as this has been shown to improve the course of an asthma exacerbation. The patient was given close return precautions and followup instructions. Laboratory Tests Test 06/05/19 13:10 White Blood Count 4.8 K/UL (4.8-10.8) Red Blood Count 4.15 M/UL (4.70-6.10) L Hemoglobin 12.6 G/DL (14.2-18.0) L Hematocrit 38.1 % (42.0-52.0) L Mean Corpuscular Volume 92 FL (80-99) Mean Corpuscular Hemoglobin 30.5 PG (27.0-31.0) Mean Corpuscular Hemoglobin Concent 33.2 G/DL (32.0-36.0) Red Cell Distribution Width 11.7 % (11.6-14.8) Platelet Count 313 K/UL (150-450) Mean Platelet Volume 7.3 FL (6.5-10.1) Neutrophils (%) (Auto) 59.1 % (45.0-75.0) Lymphocytes (%) (Auto) 31.1 % (20.0-45.0) Monocytes (%) (Auto) 6.1 % (1.0-10.0) Eosinophils (%) (Auto) 2.4 % (0.0-3.0) Basophils (%) (Auto) 1.3 % (0.0-2.0) Sodium Level 142 MMOL/L (136-145) Potassium Level 3.6 MMOL/L (3.5-5.1) Chloride Level 106 MMOL/L (98-107) Carbon Dioxide Level 28 MMOL/L (21-32) Anion Gap 8 mmol/L (5-15) Blood Urea Nitrogen 22 mg/dL (7-18) H Creatinine 0.8 MG/DL (0.55-1.30) Estimate Glomerular Filtration Rate > 60 mL/min (>60) Glucose Level 131 MG/DL (74-106) H Calcium Level 8.8 MG/DL (8.5-10.1) Total Bilirubin 0.3 MG/DL (0.2-1.0) Aspartate Amino Transferase (AST) 22 U/L (15-37) Alanine Aminotransferase (ALT) 40 U/L (12-78) Alkaline Phosphatase 70 U/L (46-116) Troponin I 0.000 ng/mL (0.000-0.056) Total Protein 7.4 G/DL (6.4-8.2) Albumin 3.3 G/DL (3.4-5.0) L Globulin 4.1 g/dL Albumin/Globulin Ratio 0.8 (1.0-2.7) L EKG Diagnostic Results Rate: normal Rhythm: NSR ST Segments: no acute changes Rhythm Strip Diag. Results EP Interpretation: yes Rate: 70's Rhythm: NSR, no PVC's, no ectopy Chest X-Ray Diagnostic Results Chest X-Ray Diagnostic Results : Chest X-Ray Ordered: Yes # of Views/Limited/Complete: 1 View Indication: Shortness of Breath EP Interpretation: Yes Interpretation: no consolidation, no effusion, no pneumothorax, no acute cardiopulmonary disease Impression: No acute disease Electronically Signed by: Jodie Cheney DO Last Vital Signs Date Time Temp Pulse Resp B/P (MAP) Pulse Ox O2 Delivery O2 Flow Rate FiO2 06/05/19 12:44 98.6 83 18 159/92 (114) 100 Room Air Status: improved Disposition: HOME, SELF-CARE Condition: Improved Jodie Cheney DO Jun 05, 2019 13:28
[2019-06-05 13:53] LABS: ANION GAP 8 mmol/L (5-15); BLOOD UREA NITROGEN 22 mg/dL (7-18); CALCIUM 8.8 MG/DL (8.5-10.1); CARBON DIOXIDE 28 MMOL/L (21-32); CHLORIDE 106 MMOL/L (98-107); CREATININE 0.8 MG/DL (0.55-1.30); POTASSIUM 3.6 MMOL/L (3.5-5.1); SODIUM 142 MMOL/L (136-145)
[2019-06-05 13:58] LABS: ALANINE AMINOTRANSFERASE 40 U/L (12-78); ALBUMIN 3.3 G/DL (3.4-5.0); ALBUMIN/GLOBULIN RATIO 0.8 (1.0-2.7); ALKALINE PHOSPHATASE 70 U/L (46-116); ASPARTATE AMINO TRANSFERASE 22 U/L (15-37); BILIRUBIN,TOTAL 0.3 MG/DL (0.2-1.0)
--- NOTE | 2019-06-05 14:11 | Diagnostic Imaging Report ---
Indication: Dyspnea Comparison: 01/08/2019 A single view chest radiograph was obtained. Findings: Cardiomediastinal appearance is within normal limits for age. The lungs are clear. Pulmonary vascularity is appropriate. The diaphragmatic contour is smooth and costophrenic angles are sharp. No pleural effusions are identified. The bones are unremarkable. Impression: No acute findings
[2019-06-05 14:12] LABS: BASOPHILS % (AUTO) 1.3 % (0.0-2.0); EOSINOPHILS % (AUTO) 2.4 % (0.0-3.0); HEMATOCRIT 38.1 % (42.0-52.0); HEMOGLOBIN 12.6 G/DL (14.2-18.0); LYMPHOCYTES % (AUTO) 31.1 % (20.0-45.0); MEAN CORPUSCULAR VOLUME 92 FL (80-99); MONOCYTES % (AUTO) 6.1 % (1.0-10.0); NEUTROPHILS % (AUTO) 59.1 % (45.0-75.0); PLATELET COUNT 313 K/UL (150-450); RED BLOOD COUNT 4.15 M/UL (4.70-6.10); RED CELL DISTRIBUTION WIDTH 11.7 % (11.6-14.8); WHITE BLOOD COUNT 4.8 K/UL (4.8-10.8)
[2019-06-05] MEDS ORDERED: PREDNISONE20 MG ORAL (14:55)
[2019-06-05 15:05] VITALS: BP 136/86
--- NOTE | 2019-06-11 16:59 | Cardiology Report ---
APPROVED REPORT EKG Measurement Heart [id number] Normal sinus rhythm Nonspecific ST and T wave abnormality Abnormal ECG
== END 2019-06-05 15:05 | disposition home or self-care (01) ==
LOC: EMR 13:30
DX: J45.901 Unspecified asthma with (acute) exacerbation (principal); I10 Essential (primary) hypertension; Z95.0 Presence of cardiac pacemaker; Z91.013 Allergy to seafood
CPT/HCPCS: 36415; 71045; 80053; 84484; 85025; 93005; 94640; 94664; 99283; J7512